=== PATIENT | female | born 1975 | race Caucasian/White ===

== ENCOUNTER 2021-03-18 09:08 | Outpatient (CLI) | payer BC, SELFPAY ==
--- NOTE | 2021-03-18 09:15 | XR_ITS ---
WS: [id number] Exam: XR hip RT 2-3V wo/w pel* [id number] Date/Time of Exam: 03/18/2021 9:15 AM Reason For Exam: R HIP PAIN Findings: No fractures or bone anomalies are noted. No unusual soft tissue masses or calcifications are seen. The bony elements of the hip are in adequate alignment. XR/XR hip RT 2-3V wo/w pel* [id number] IMPRESSION: Negative right hip. Tonnis classification: 0
== END 2021-03-18 09:09 | disposition home or self-care (01) ==
PROVIDERS: PCP Electrodiagnostic Medicine; Visit Provider Electrodiagnostic Medicine
DX: M25.551 Pain in right hip (principal)
CPT/HCPCS: 73502

== ENCOUNTER 2024-07-27 08:19 | Outpatient (CLI) | payer OTHER, SELFPAY ==
--- NOTE | 2024-07-27 08:23 | US_ITS ---
WS: [id number] ULTRASOUND BREAST RIGHT TECHNIQUE: Ultrasound right breast focused area of concern. CLINICAL INFORMATION: HYPERTROPHY OF BREAST. Rule out abscess. COMPARISON: Outside examinations now available ultrasound 05/30/2024 and 05/19/2024 mammogram. Addition al prior mammograms and ultrasound dating back to 2016. FINDINGS: Complex lobulated cystic lesion described on the outside ultrasound 05/30/2024 appears stable in appea wolfgang at the 10 o'clock position areola. Lobulated cystic lesion measures 1.5 x 0.9 x 0.7 cm unchange d from the outside study. This most likely represents a complex cyst. No evidence of abscess. No othe r suspicious fluid collections visualized to suggest abscess. Recommend 6-month follow-up as previous ly suggested. Incidentally noted are a few tiny subcentimeter simple and complex cysts. US/US breast RT limited* [id number] IMPRESSION: BI-RADS 3 probably benign Follow-up: 6-month RIGHT breast ultrasound as previously recommended
== END 2024-07-27 08:20 | disposition home or self-care (01) ==
LOC: RAD 08:21
PROVIDERS: PCP Nurse Practitioner Family; Visit Provider Specialist
DX: N60.01 Solitary cyst of right breast (principal); N62 Hypertrophy of breast; L30.4 Erythema intertrigo
CPT/HCPCS: 76642